=== PATIENT | male | born 1990 | race Hispanic/Latino ===

== ENCOUNTER 2019-02-04 00:25 | Emergency (ER) | payer BC, SELFPAY ==
[2019-02-04] MEDS ORDERED: LIDOCAINE VISCOUS 2% SOLN 15 ML UDC ONE (00:37)
[2019-02-04] MEDS ORDERED: MAGNE/ALUM HYDROXD 30 ML UCUP ONE (00:37)
--- NOTE | 2019-02-04 01:56 | ER ---
Nurse's Notes [facility] Name: Shane Adams Age: 28 yrs Sex: Male : 1990 Arrival Date: 02/04/2019 Time: 00:27 Bed 14 Private MD: Diagnosis: Gastro-esophageal reflux disease Presentation: 02/04 00:38 Presenting complaint: Patient states: sore throat, hoarseness, decreased appetite \T\ aa1 upper abd pain x 3 days. Reports hx of acid reflux and no relief with pepcid. Transition of care: patient was not received from another setting of care. Onset of symptoms was February 01, 2019. Risk Assessment: Do you want to hurt yourself or someone else? Patient reports no desire to harm self or others. Initial Sepsis Screen: Does the patient meet any 2 criteria? HR > 90 bpm. Does the patient have a suspected source of infection? Yes: Acute abdominal pain. Care prior to arrival: None. 00:38 Method Of Arrival: Ambulatory aa1 00:38 Acuity: RIANA 3 aa1 Triage Assessment: 00:43 General: Appears in no apparent distress. comfortable, Behavior is calm, cooperative, aa1 appropriate for age. Historical: - Allergies: 00:43 CONCERTA; aa1 - Home Meds: 00:43 None [Active]; aa1 - PMHx: 00:43 ADD/ADHD; Gastric Reflux; aa1 - PSHx: 00:43 None; aa1 - Immunization history:: Flu vaccine is not up to date. - Social history:: Smoking status: Patient/guardian denies using tobacco, Patient/guardian denies using alcohol. - Ebola Screening: : No symptoms or risks identified at this time. Screenin:40 Abuse screen: Denies threats or abuse. Denies injuries from another. Nutritional rr5 screening: No deficits noted. Tuberculosis screening: No symptoms or risk factors identified. Fall Risk None identified. Total Kenny Fall Scale indicates No Risk (0-24 pts). Assessment: 00:40 General: Appears in no apparent distress. uncomfortable, Behavior is calm, cooperative, rr5 appropriate for age. 00:40 Pain: Complains of pain in throat and epigastric area Pain does not radiate. Pain rr5 currently is 7 out of 10 on a pain scale. Quality of pain is described as aching, Pain began gradually, 2-3 days ago. Is intermittent. Neuro: Level of Consciousness is awake, alert, obeys commands, Oriented to person, place, time, situation, Appropriate for age. Cardiovascular: Capillary refill < 3 seconds Patient's skin is warm and dry. Respiratory: Airway is patent Respiratory effort is even, unlabored, Respiratory pattern is regular, symmetrical. GI: Abdomen is round Reports upper abdominal pain, vomiting, loss of appetite. : No signs and/or symptoms were reported regarding the genitourinary system. EENT: Throat is clear with gag reflex present, Reports pain in throat hoarseness. Derm: Skin is intact, is healthy with good turgor, Skin temperature is warm. Musculoskeletal: Circulation, motion, and sensation intact. Capillary refill < 3 seconds. 00:40 Respiratory: Breath sounds are clear bilaterally. rr5 02:20 Reassessment: Patient appears in no apparent distress at this time. Patient is alert, rr5 oriented x 3, equal unlabored respirations, skin warm/dry/pink. discharge instruction given and explained without complaints made. Patient states feeling better. Patient states symptoms have improved. Vital Signs: 00:43 BP 127 / 85; Pulse 109; Resp 18; Temp 98.3; Pulse Ox 99% on R/A; Weight 68.04 kg; aa1 Height 5 ft. 5 in. (165.10 cm); Pain 8/10; 02:10 BP 121 / 80; Pulse 90; Resp 17; Temp 98.5; Pulse Ox 99% ; Pain 4/10; rr5 00:43 Body Mass Index 24.96 (68.04 kg, 165.10 cm) aa1 ED Course: 00:27 Patient arrived in ED. cl3 00:27 Angeli Man FNP-C is PHCP. kb 00:27 Albert Yadav MD is Attending Physician. kb 00:34 Luis Antonio Caruso RN is Primary Nurse. rr5 00:41 Patient has correct armband on for positive identification. Bed in low position. Call rr5 light in reach. 00:41 No provider procedures requiring assistance completed. rr5 00:43 Triage completed. aa1 00:43 Arm band placed on right wrist. aa1 02:10 Patient did not have IV access during this emergency room visit. rr5 Administered Medications: 00:50 Drug: GI Cocktail without - (Maalox Suspension 30 ml, Lidocaine Liquid 2 % 15 rr5 ml) Route: PO; 02:10 Follow up: Response: No adverse reaction; Pain is decreased rr5 Outcome: 01:56 Discharge ordered by MD. almonte 02:10 Discharged to home ambulatory. rr5 02:10 Condition: stable 02:10 Discharge instructions given to patient, Instructed on discharge instructions, follow up and referral plans. Demonstrated understanding of instructions, follow-up care. 02:25 Patient left the ED. rr5 Signatures: Angeli Man, RETAIL MERCHANDISING MANAGER-C RETAIL MERCHANDISING MANAGER-Rosina Peacock RN RN aa1 Luis Antonio Caruso RN RN rr5 Lyssa Robledo cl3
--- NOTE | 2019-02-04 01:57 | EDPHYS ---
Physician Documentation [facility] Name: Shane Adams Age: 28 yrs Sex: Male : 1990 Arrival Date: 02/04/2019 Time: 00:27 Bed 14 Private MD: ED Physician Albert Yadav HPI: 02/04 02:17 This 28 yrs old Male presents to ER via Ambulatory with complaints of Sore kb Throat, Vomiting. 02:17 The patient presents with sore throat. The patient describes throat pain as hoarseness. kb Onset: The symptoms/episode began/occurred yesterday. Severity of symptoms: At their worst the symptoms were mild, in the emergency department the symptoms are unchanged. Modifying factors: The symptoms are alleviated by nothing, the symptoms are aggravated by nothing, Patient's oral intake status: good. Associated signs and symptoms: Pertinent positives: Sore throat epigastric pain . The patient has experienced similar episodes in the past. The patient has not recently seen a physician. Pt reports hoarse-feeling throat and epigastric pain. Reports epigastric pain resolved. States he has acid reflux and this happens when he eats a lot of spicy things. . Historical: - Allergies: 00:43 CONCERTA; aa1 - Home Meds: 00:43 None [Active]; aa1 - PMHx: 00:43 ADD/ADHD; Gastric Reflux; aa1 - PSHx: 00:43 None; aa1 - Immunization history:: Flu vaccine is not up to date. - Social history:: Smoking status: Patient/guardian denies using tobacco, Patient/guardian denies using alcohol. - Ebola Screening: : No symptoms or risks identified at this time. ROS: 02:17 Constitutional: Negative for fever, chills, and weight loss, Neck: Negative for injury, kb pain, and swelling, Cardiovascular: Negative for chest pain, palpitations, and edema, Respiratory: Negative for shortness of breath, cough, wheezing, and pleuritic chest pain, Back: Negative for injury and pain, MS/Extremity: Negative for injury and deformity, Skin: Negative for injury, rash, and discoloration, Neuro: Negative for headache, weakness, numbness, tingling, and seizure. 02:17 ENT: Positive for hoarseness. 02:17 Abdomen/GI: Positive for abdominal pain, of the epigastric area. Exam: 02:17 Constitutional: This is a well developed, well nourished patient who is awake, alert, kb and in no acute distress. Head/Face: Normocephalic, atraumatic. ENT: Nares patent. No nasal discharge, no septal abnormalities noted. Tympanic membranes are normal and external auditory canals are clear. Oropharynx with no redness, swelling, or masses, exudates, or evidence of obstruction, uvula midline. Mucous membranes moist. Neck: Trachea midline, no thyromegaly or masses palpated, and no cervical lymphadenopathy. Supple, full range of motion without nuchal rigidity, or vertebral point tenderness. No Meningismus. Chest/axilla: Normal chest wall appearance and motion. Nontender with no deformity. No lesions are appreciated. Cardiovascular: Regular rate and rhythm with a normal S1 and S2. No gallops, murmurs, or rubs. Normal PMI, no JVD. No pulse deficits. Respiratory: Lungs have equal breath sounds bilaterally, clear to auscultation and percussion. No rales, rhonchi or wheezes noted. No increased work of breathing, no retractions or nasal flaring. Abdomen/GI: Soft, non-tender, with normal bowel sounds. No distension or tympany. No guarding or rebound. No evidence of tenderness throughout. Skin: Warm, dry with normal turgor. Normal color with no rashes, no lesions, and no evidence of cellulitis. MS/ Extremity: Pulses equal, no cyanosis. Neurovascular intact. Full, normal range of motion. Neuro: Awake and alert, GCS 15, oriented to person, place, time, and situation. Cranial nerves II-XII grossly intact. Motor strength 5/5 in all extremities. Sensory grossly intact. Cerebellar exam normal. Normal gait. Vital Signs: 00:43 BP 127 / 85; Pulse 109; Resp 18; Temp 98.3; Pulse Ox 99% on R/A; Weight 68.04 kg; aa1 Height 5 ft. 5 in. (165.10 cm); Pain 8/10; 02:10 BP 121 / 80; Pulse 90; Resp 17; Temp 98.5; Pulse Ox 99% ; Pain 4/10; rr5 00:43 Body Mass Index 24.96 (68.04 kg, 165.10 cm) aa1 MDM: 00:28 Patient medically screened. kb 02:17 Data reviewed: vital signs, nurses notes. Data interpreted: Pulse oximetry: on room air kb is 99 %. Interpretation: normal. Counseling: I had a detailed discussion with the patient and/or guardian regarding: the historical points, exam findings, and any diagnostic results supporting the discharge/admit diagnosis, lab results, the need for outpatient follow up, a family practitioner, to return to the emergency department if symptoms worsen or persist or if there are any questions or concerns that arise at home. 02/04 01:20 Order name: Influenza Screen (A ; Complete Time: 01:55 EDMS 02/04 01:20 Order name: Group A Streptococcus Rapid Sc EDMS Administered Medications: 00:50 Drug: GI Cocktail without - (Maalox Suspension 30 ml, Lidocaine Liquid 2 % 15 rr5 ml) Route: PO; 02:10 Follow up: Response: No adverse reaction; Pain is decreased rr5 Disposition: 15:24 Co-signature as Attending Physician, Albert Yadav MD I agree with the assessment and tonie plan of care. Disposition: 02/04/19 01:56 Discharged to Home. Impression: Gastro-esophageal reflux disease. - Condition is Stable. - Discharge Instructions: Gastroesophageal Reflux Disease, Adult. - Medication Reconciliation Form, Thank You Letter, Antibiotic Education, Prescription Opioid Use form. - Follow up: Emergency Department; When: As needed; Reason: Worsening of condition. Follow up: Private Physician; When: 2 - 3 days; Reason: Recheck today's complaints, Continuance of care, Re-evaluation by your physician. Signatures: Dispatcher [employer] EDIA Angeli Man FNP-C FNP-Rosina Peacock, RN RN aa1 Albert Yadav MD MD cha Roque, Raymond RN RN rr5 Corrections: (The following items were deleted from the chart) 02:25 01:56 02/04/2019 01:56 Discharged to Home. Impression: Gastro-esophageal reflux rr5 disease. Condition is Stable. Forms are Medication Reconciliation Form, Thank You Letter, Antibiotic Education, Prescription Opioid Use. Follow up: Emergency Department; When: As needed; Reason: Worsening of condition. Follow up: Private Physician; When: 2 - 3 days; Reason: Recheck today's complaints, Continuance of care, Re-evaluation by your physician. kb
[2019-02-04 14:10] VITALS: BP 127/85; TEMP 98.3; O2SAT 99
== END 2019-02-04 02:25 | disposition home or self-care (01) ==
LOC: ER 00:25
DX: K21.9 Gastro-esophageal reflux disease without esophagitis (principal); Z88.8 Allergy status to other drugs, medicaments and biological substances
CPT/HCPCS: 87070; 87081; 87804; 99283

== ENCOUNTER 2022-12-04 19:20 | Emergency (ER) | payer SELFPAY ==
[2022-12-04 20:04] LABS: Absolute Lymphocytes (CBC) 2.3 K/uL (0.7-4.9); Hematocrit 44.3 % (39.6-49.0); Lymphocytes % 22.7 % (15.3-44.8); MCV 83.7 fL (80-100); MPV 8.9 fL (7.6-11.3); Platelets 181 thou/uL (152-406)
[2022-12-04] MEDS ORDERED: ONDANSETRON 4 MG/2 ML VIAL ONE (20:11)
[2022-12-04] MEDS ORDERED: PANTOPRAZOLE 40 MG INJ ONE (20:11)
[2022-12-04] MEDS ORDERED: NA CHLORIDE 0.9% 1,000 ML ONE (20:11)
[2022-12-04 20:20] LABS: Albumin 3.7 g/dL (3.4-5.0); Bilirubin Direct 0.1 mg/dL (0-0.2); Bilirubin Indirect, Calculated 0.5 mg/dL (0.2-0.8); Bilirubin Total 0.6 mg/dL (0.2-1.0); Magnesium 2.2 mg/dL (1.6-2.4); Potassium 3.4 mEq/L (3.5-5.1); Protein, Total 7.3 g/dL (6.4-8.2); Troponin High Sensitivity 5.7 pg/mL (<58.9)
[2022-12-04] MEDS ORDERED: MAGNES/ALUMIN/SIMET 30ML UCUP ONE (20:20)
--- NOTE | 2022-12-04 20:43 | RAD REPORT ---
EXAM DESCRIPTION: Darlene Single View12/04/2022 8:09 pm CLINICAL HISTORY: CHEST PAIN COMPARISON: No comparisons TECHNIQUE: Portable AP view of the chest. FINDINGS: Decreased inspiratory effort limiting evaluation. The lungs show bibasilar streaky opaciti es, may reflect atelectasis. No pneumothorax or effusion. The cardiomediastinal contours are unremar kable. IMPRESSION: Mild bibasilar streaky opacities favoring atelectasis. No other acute cardiopulmonary pr ocess.
--- NOTE | 2022-12-04 21:05 | RAD REPORT ---
EXAM DESCRIPTION: US - Abdomen Exam Limited - 12/04/2022 8:34 pm CLINICAL HISTORY: ruq pain COMPARISON: No comparisons TECHNIQUE: Sonographic grayscale and color flow images of the right upper abdominal quadrant were obtained. FINDINGS: The gallbladder is suboptimally distended limiting evaluation, but demonstrates no gallsto neil. No pericholecystic fluid or gallbladder wall thickening. The common bile duct is normal measurin g 3 mm. The visualized aspects of the liver demonstrates no findings of intrahepatic biliary dilatation. IMPRESSION: Unremarkable examination, although suboptimally distended gallbladder limits evaluation.
--- NOTE | 2022-12-04 21:15 | EDPHYS ---
Physician Documentation [facility] Name: Shane Adams Age: 32 yrs Sex: Male : 1990 Arrival Date: 12/04/2022 Time: 19:20 Bed 16 Private MD: ED Physician Perfecto Gates HPI: 12/04 21:17 This 32 yrs old Male presents to ER via Ambulatory with complaints of Chest rt Pain. 21:17 Patient presents to the ED with chest pain, nausea, vomiting. Patient states this pain rt is consistent with prior episodes of reflux. Is been going on for few days. He does report vomiting which is different. Denies other acute complaints at this time, symptoms are moderate in severity, no other aggravating elevating factors.. Historical: - Allergies: 19:30 CONCERTA; mb9 - Home Meds: 19:30 None [Active]; mb9 - PMHx: 19:30 ADD/ADHD; Gastric Reflux; mb9 - PSHx: 19:30 None; mb9 - Immunization history:: Adult Immunizations up to date. - Social history:: Smoking status: Patient denies any tobacco usage or history of. - Family history:: not pertinent. ROS: 21:17 Constitutional: Negative for fever, chills, and weight loss, Respiratory: Negative for rt shortness of breath, cough, wheezing, and pleuritic chest pain, MS/Extremity: Negative for injury and deformity, Skin: Negative for injury, rash, and discoloration, Neuro: Negative for headache, weakness, numbness, tingling, and seizure, Psych: Negative for depression, anxiety, suicide ideation, homicidal ideation, and hallucinations, 21:17 Cardiovascular: Positive for chest pain, Negative for edema, 21:17 Abdomen/GI: Positive for nausea, vomiting, Exam: 21:17 Constitutional: This is a well developed, well nourished patient who is awake, alert, rt and in no acute distress. Head/Face: Normocephalic, atraumatic. Chest/axilla: Normal chest wall appearance and motion. Nontender with no deformity. No lesions are appreciated. Cardiovascular: Regular rate and rhythm with a normal S1 and S2. No gallops, murmurs, or rubs. Normal PMI, no JVD. No pulse deficits. Respiratory: Lungs have equal breath sounds bilaterally, clear to auscultation and percussion. No rales, rhonchi or wheezes noted. No increased work of breathing, no retractions or nasal flaring. Abdomen/GI: Soft, non-tender, with normal bowel sounds. No distension or tympany. No guarding or rebound. No evidence of tenderness throughout. Skin: Warm, dry with normal turgor. Normal color with no rashes, no lesions, and no evidence of cellulitis. MS/ Extremity: Pulses equal, no cyanosis. Neurovascular intact. Full, normal range of motion. Neuro: Awake and alert, GCS 15, oriented to person, place, time, and situation. Cranial nerves II-XII grossly intact. Motor strength 5/5 in all extremities. Sensory grossly intact. Cerebellar exam normal. Normal gait. Psych: Awake, alert, with orientation to person, place and time. Behavior, mood, and affect are within normal limits. 21:17 ECG was reviewed by the Attending Physician. Vital Signs: 19:29 BP 144 / 91; Pulse 98; Resp 16; Temp 98; Pulse Ox 97% on R/A; Weight 81.65 kg; Height 5 mb9 ft. 5 in. ; Pain 7/10; 20:00 BP 115 / 74; Pulse 91; Resp 17; Pulse Ox 96% on R/A; me1 21:00 BP 116 / 73; Pulse 76; Resp 16; Pulse Ox 96% on R/A; me1 19:29 Body Mass Index 29.95 (81.65 kg, 165.1 cm) mb9 19:29 Pain Scale: Adult mb9 MDM: 19:42 Patient medically screened. rt 21:17 Differential diagnosis: Acute coronary syndrome, gastritis, acid reflux, gallstones, rt pancreatitis. HEART Score: History: Slightly Suspicious (0), ECG: Normal (0), Age: < or = 45 years (0), Risk Factors: No Risk Factors Known (0), Troponin: < or = 1 x Normal Limit (0), Total Score = 0. Data reviewed: vital signs, nurses notes, lab test result(s), EKG, radiologic studies. I considered the following discharge prescriptions or medication management in the emergency department Medications were administered in the Emergency Department. See MAR. Independent interpretation of the following test(s) in the Emergency Department X-Ray: My interpretation is No consolidation seen on interpretation of x-ray images. Test considered but Not performed: CT: Benign abdominal examination, CT scan not indicated. Counseling: I had a detailed discussion with the patient and/or guardian regarding the historical points, exam findings, and any diagnostic results supporting the discharge/admit diagnosis, lab results, radiology results, the need for outpatient follow up. Response to treatment: the patient's symptoms have markedly improved after treatment. 12/04 19:50 Order name: Basic Metabolic Panel; Complete Time: 20:22 rt 12/04 19:50 Order name: CBC with Diff; Complete Time: 20: rt 12/04 19:50 Order name: LFT's; Complete Time: 20: rt 12/04 19:50 Order name: Magnesium; Complete Time: : rt 12/04 19:50 Order name: Troponin HS; Complete Time: 20: rt 12/04 19:50 Order name: Lipase; Complete Time: 20: rt 12/04 19:50 Order name: XRAY Chest (1 view); Complete Time: 20:54 rt 12/04 19:50 Order name: US Abdomen Limited; Complete Time: 21:10 rt 12/04 19:50 Order name: EKG; Complete Time: 19:51 rt 12/04 19:50 Order name: Cardiac monitoring; Complete Time: :53 rt 12/04 19:50 Order name: EKG - Nurse/Tech; Complete Time: 19:53 rt 12/04 19:50 Order name: IV Saline Lock; Complete Time: 19:53 rt 12/04 19:50 Order name: Labs collected and sent; Complete Time: 19:53 rt 12/04 19:50 Order name: O2 Per Protocol; Complete Time: 19:53 rt 12/04 19:50 Order name: O2 Sat Monitoring; Complete Time: 19:53 rt EC:17 Rate is 97 beats/min. Rhythm is regular, Normal Sinus Rhythm with No ectopy. QRS [place] rt is Normal. AR interval is normal. QRS interval is normal. QT interval is normal. No Q waves. T waves are Normal. No ST changes noted. Interpreted by me. Administered Medications: 20:04 Drug: NS 0.9% IV 1000 ml IV at 1 bolus Per protocol; 1000 mL bolus Route: IV; Rate: 1 me1 bolus; Site: left antecubital; 20:04 Drug: Ondansetron IVP 4 mg IVP once; over 2 minutes Route: IVP; Site: left antecubital; me1 21:10 Follow up: Response: No adverse reaction me1 20:04 Drug: Pantoprazole IVP 40 mg IVP once Route: IVP; Site: left antecubital; me1 21:11 Follow up: Response: No adverse reaction me1 20:08 Drug: Alum-Mag Hydroxide-Simeth PO Suspension (200 mg-200 mg-20 mg/5 mL) 30 ml PO once me1 Route: PO; 21:10 Follow up: Response: No adverse reaction me1 Disposition Summary: 12/04/22 21:15 Discharge Ordered Notes: Location: Home rt Problem: an ongoing problem rt Symptoms: have improved rt Condition: Stable rt Diagnosis - Gastro-esophageal reflux disease without esophagitis rt Followup: rt - With: Amilcar Lopez MD - When: 7 - 10 days - Reason: Discharge Instructions: - Discharge Summary Sheet rt Forms: - Medication Reconciliation Form rt - Thank You Letter rt - Antibiotic Education rt - Prescription Opioid Use rt - Patient Portal Instructions rt - Leadership Thank You Letter rt Prescriptions: - ondansetron 4 mg Oral Tablet,disintegrating - take 1 tablet ORAL route every 6 hours; 18 tablet; Refills: 0, Product rt Selection Permitted - Protonix 40 mg Oral Tablet - take 1 tablet ORAL route once daily; 30 tablet; Refills: 0, Product Selection rt Permitted Signatures: Dispatcher [employer] Kacey Penn RN RN mb9 Perfecto Gates MD MD rt Kendal Glynn RN RN me1
--- NOTE | 2022-12-04 21:15 | ER ---
Nurse's Notes [facility] Name: Shane Adams Age: 32 yrs Sex: Male : 1990 Arrival Date: 12/04/2022 Time: 19:20 Bed 16 Private MD: Diagnosis: Gastro-esophageal reflux disease without esophagitis Presentation: 12/04 19:29 Chief complaint: Patient states: "I started having CP while sitting earlier. Now I'm mb9 N/V. It feels like it's burning and radiates to my neck". Coronavirus screen: Vaccine status: Patient reports receiving the 2nd dose of the covid vaccine. Ebola Screen: No symptoms or risks identified at this time. Initial Sepsis Screen: Does the patient meet any 2 criteria? No. Patient's initial sepsis screen is negative. Does the patient have a suspected source of infection? No. Patient's initial sepsis screen is negative. Risk Assessment: Do you want to hurt yourself or someone else? Patient reports no desire to harm self or others. Onset of symptoms was December 04, 2022. 19:29 Method Of Arrival: Ambulatory 9 19:29 Acuity: RIANA 3 mb9 Triage Assessment: 19:30 General: Appears in no apparent distress. Behavior is calm, cooperative. Pain: mb9 Complains of pain in chest Pain radiates to neck Pain at worst was 7 out of 10 on a pain scale. Quality of pain is described as burning. EENT: No signs and/or symptoms were reported regarding the EENT system. Neuro: Chapa Agitation-Sedation Scale (RASS): 0 - Alert and Calm Level of Consciousness is awake, alert, obeys commands, Oriented to person, place, time, situation, Appropriate for age. Cardiovascular: Reports chest pain, Patient's skin is warm and dry. Respiratory: Airway is patent Respiratory effort is even, unlabored, Respiratory pattern is regular, symmetrical. GI: Reports nausea, vomiting. Musculoskeletal: Range of motion: intact in all extremities. Historical: - Allergies: 19:30 CONCERTA; mb9 - Home Meds: 19:30 None [Active]; mb9 - PMHx: 19:30 ADD/ADHD; Gastric Reflux; mb9 - PSHx: 19:30 None; mb9 - Immunization history:: Adult Immunizations up to date. - Social history:: Smoking status: Patient denies any tobacco usage or history of. - Family history:: not pertinent. Screenin:19 [facility] ED Fall Risk Assessment (Adult) History of falling in the last 3 months, me1 including since admission No falls in past 3 months (0 pts) Confusion or Disorientation No (0 pts) Intoxicated or Sedated No (0 pts) Impaired Gait No (0 pts) Mobility Assist Device Used No (0 pt) Altered Elimination No (0 pt) Score/Fall Risk Level 0 - 2 = Low Risk. Abuse screen: Denies threats or abuse. Nutritional screening: No deficits noted. Tuberculosis screening: No symptoms or risk factors identified. Assessment: 21:19 General: Appears uncomfortable, well groomed, well developed, well nourished, Behavior me1 is calm, cooperative, appropriate for age, Reports chest pain that started while sitting earlier today. c/o n/v now. States pain feels like a burning/pressure that starts in chest and radiates to his neck. Pain: Complains of pain in chest Pain radiates to neck Pain currently is 7 out of 10 on a pain scale. Quality of pain is described as burning, pressure, Pain began gradually, 3 hours ago. Is continuous. Neuro: Level of Consciousness is awake, alert, obeys commands, Oriented to person, place, time, situation, Appropriate for age. Cardiovascular: Capillary refill < 3 seconds Patient's skin is warm and dry. Respiratory: Airway is patent Respiratory effort is even, unlabored, Respiratory pattern is regular, symmetrical. Vital Signs: 19:29 BP 144 / 91; Pulse 98; Resp 16; Temp 98; Pulse Ox 97% on R/A; Weight 81.65 kg; Height 5 mb9 ft. 5 in. ; Pain 7/10; 20:00 BP 115 / 74; Pulse 91; Resp 17; Pulse Ox 96% on R/A; me1 21:00 BP 116 / 73; Pulse 76; Resp 16; Pulse Ox 96% on R/A; me1 19:29 Body Mass Index 29.95 (81.65 kg, 165.1 cm) mb9 19:29 Pain Scale: Adult mb9 ED Course: 19:23 Patient arrived in ED. jj6 19:30 Triage completed. mb9 19:30 Arm band placed on. mb9 19:35 Kendal Glynn, RN is Primary Nurse. me1 19:40 Perfecto Gates MD is Attending Physician. rt 19:43 Inserted saline lock: 20 gauge in left antecubital area, using aseptic technique. me1 19:55 Basic Metabolic Panel Sent. me1 19:56 CBC with Diff Sent. me1 19:56 LFT's Sent. me1 19:56 Magnesium Sent. me1 19:56 Troponin HS Sent. me1 19:56 Lipase Sent. me1 20:10 XRAY Chest (1 view) In Process Unspecified. EDMS 20:36 US Abdomen Limited In Process Unspecified. EDMS 21:14 Amilcar Lopez MD is Referral Physician. rt 21:19 Patient has correct armband on for positive identification. Bed in low position. Call me1 light in reach. Side rails up X 1. Provided Education on: POC. Verbalized understanding. . Client placed on continuous cardiac and pulse oximetry monitoring. NIBP monitoring applied. deputy controller on. 21:19 No provider procedures requiring assistance completed. Patient maintains SpO2 me1 saturation greater than 95% on room air. 21:34 IV discontinued, intact, bleeding controlled, No redness/swelling at site. Pressure me1 dressing applied. Administered Medications: 20:04 Drug: NS 0.9% IV 1000 ml IV at 1 bolus Per protocol; 1000 mL bolus Route: IV; Rate: 1 me1 bolus; Site: left antecubital; 20:04 Drug: Ondansetron IVP 4 mg IVP once; over 2 minutes Route: IVP; Site: left antecubital; me1 21:10 Follow up: Response: No adverse reaction me1 20:04 Drug: Pantoprazole IVP 40 mg IVP once Route: IVP; Site: left antecubital; me1 21:11 Follow up: Response: No adverse reaction me1 20:08 Drug: Alum-Mag Hydroxide-Simeth PO Suspension (200 mg-200 mg-20 mg/5 mL) 30 ml PO once me1 Route: PO; 21:10 Follow up: Response: No adverse reaction me1 Medication: 21:19 VIS not applicable for this client. me1 Outcome: 21:15 Discharge ordered by . rt 21:34 Discharged to home ambulatory, me1 21:34 Condition: stable 21:34 Discharge instructions given to patient, Instructed on discharge instructions, follow up and referral plans. medication usage, Demonstrated understanding of instructions, follow-up care, medications, Prescriptions given X 2, 21:34 Patient left the ED. me1 Signatures: Dispatcher [employer] EDMajo Hussein Mary Beth, RN RN mb9 Perfecto Gates MD MD rt Kendal Glynn, DANISHA RN me1 Corrections: (The following items were deleted from the chart) 21:33 20:00 BP 116 / 73; Pulse 76bpm; Resp 16bpm; Pulse Ox 96% RA; me1 me1
[2022-12-04 21:39] VITALS: TEMP 98
[2022-12-04 21:40] VITALS: O2SAT 96
[2022-12-04 21:42] VITALS: BP 116/73
--- NOTE | 2022-12-06 13:52 | EKG ---
Test Date: 2022-12-04 Test Time: 19:35:50 Beam Worker: MB MEASUREMENT RESULTS: Intervals: Rate: 97 [place]: 144 QRSD: 86 QT: 340 QTc: 431 [place]: P: 49 [place]: 144 QRS: 61 T: 32 INTERPRETIVE STATEMENTS: Normal sinus rhythm Normal ECG Compared to ECG 07/26/2000 11:06:00 No significant changes Electronically Signed On 12-06-22 13:50:27 CDT by Natanael Gutierrez
== END 2022-12-04 21:34 | disposition home or self-care (01) ==
LOC: ER 19:20
DX: K21.9 Gastro-esophageal reflux disease without esophagitis (principal)
CPT/HCPCS: 36415; 71045; 76705; 80048; 80076; 83690; 83735; 84484; 85025; 93005; 96374; 96375; 99285; C9113; J2405; J7030

== ENCOUNTER 2023-01-09 23:07 | Emergency (ER) | payer SELFPAY ==
--- NOTE | 2023-01-09 23:21 | EDPHYS ---
Physician Documentation [facility] Name: Shane Adams Age: 32 yrs Sex: Male : 1990 Arrival Date: 01/09/2023 Time: 23:07 Bed 13 Private MD: ED Physician Reji Us HPI: 01/10 00:06 This 32 yrs old Male presents to ER via Ambulatory with complaints of Abscess. kb 00:06 Patient is a 32-year-old male with a history of acid reflux and ADD who presents for kb abscess to right nipple that began yesterday. Denies fever.. Historical: - Allergies: 01/09 23:26 CONCERTA; pf1 - PMHx: 23:26 ADD/ADHD; Gastric Reflux; pf1 - PSHx: 23:26 None; pf1 - Immunization history:: Adult Immunizations not up to date, Last tetanus immunization: > 10 years ago Flu vaccine is not up to date. - Social history:: Smoking status: Patient denies any tobacco usage or history of. Patient/guardian denies using alcohol, street drugs. ROS: 01/10 00:05 Constitutional: Negative for fever, chills, and weight loss, kb Skin: Positive for abscess, of the right nipple, All other systems are negative, Exam: 00:05 Constitutional: This is a well developed, well nourished patient who is awake, alert, kb and in no acute distress. Head/Face: Normocephalic, atraumatic. ENT: Moist Mucous membranes Cardiovascular: Regular rate Respiratory: Respirations even and unlabored. No increased work of breathing. Talking in full sentences MS/ Extremity: Pulses equal, no cyanosis. Neurovascular intact. Full, normal range of motion. Neuro: Awake and alert, GCS 15, oriented to person, place, time, and situation. Moves all extremities. Normal gait. 00:05 Skin: abscess, that is small, of the right nipple, with induration, Vital Signs: 01/09 23:24 BP 128 / 102; Pulse 83; Resp 16; Temp 98.4; Pulse Ox 100% on R/A; Weight 80.29 kg; pf1 Height 5 ft. 5 in. ; Pain 7/10; 23:43 BP 119 / 88; Pulse 82; Resp 16; Pulse Ox 100% on R/A; pf1 23:24 Body Mass Index 29.45 (80.29 kg, 165.1 cm) pf1 23:24 Pain Scale: Adult pf1 MDM: 23:12 Patient medically screened. 01/10 00:06 Data reviewed: vital signs, nurses notes. kb 00:06 Differential diagnosis: abscess, allergic reaction, cellulitis, insect bite. kb Counseling: I had a detailed discussion with the patient and/or guardian regarding the historical points, exam findings, and any diagnostic results supporting the discharge/admit diagnosis, the need for outpatient follow up, a family practitioner, to return to the emergency department if symptoms worsen or persist or if there are any questions or concerns that arise at home. ED course: No drainable abscess appreciated. Administered Medications: 01/09 23:30 Drug: Trimethoprim-Sulfamethoxazole PO (160 mg-800 mg (DS) 1 tablet PO once Route: PO; pf1 23:43 Follow up: Response: No adverse reaction pf1 Disposition: 01/10 06:54 Co-signature as Attending Physician, Reji Us MD I agree with the assessment sp4 and plan of care. I reviewed the patient's care provided by the Advanced Practice Provider and agree with the diagnosis and treatment plan. Disposition Summary: 01/09/23 23:21 Discharge Ordered Notes: Location: Home kb Condition: Stable kb Diagnosis - Cutaneous abscess of chest wall - right breast kb Followup: kb - With: Emergency Department - When: As needed - Reason: Worsening of condition Followup: kb - With: Private Physician - When: 2 - 3 days - Reason: Recheck today's complaints, Continuance of care, Re-evaluation by your physician Discharge Instructions: - Discharge Summary Sheet kb - Skin Abscess, [id number] kb Forms: - Medication Reconciliation Form kb - Thank You Letter kb - Antibiotic Education kb - Prescription Opioid Use kb - Patient Portal Instructions kb - Leadership Thank You Letter kb Prescriptions: - Bactrim DS 800-160 mg Oral Tablet - take 1 tablet ORAL route every 12 hours for 10 days; 20 tablet; Refills: 0, kb Product Selection Permitted Signatures: Angeli Man FNP-C FNP-Ckb Finley, Pamala, RN RN pf1 Reji Us MD MD sp4
[2023-01-09] MEDS ORDERED: SMZ./TMP. 800/160 MG TABLET ONE (23:45)
--- NOTE | 2023-01-09 23:45 | ER ---
Nurse's Notes [facility] [place] Name: Shane Adams Age: 32 yrs Sex: Male : 1990 Arrival Date: 01/09/2023 Time: 23:07 Bed 13 Private MD: Diagnosis: Cutaneous abscess of chest wall-right breast Presentation: 01/09 23:24 Chief complaint: Patient states: redness and swelling to right nipple with white pf1 drainage and pain of 7,onset yesterday. Coronavirus screen: Vaccine status: Patient reports receiving the 2nd dose of the covid vaccine. 3 doses Client denies travel out of the [place] in the last 14 days. At this time, the client does not indicate any symptoms associated with coronavirus-19. Ebola Screen: Patient negative for fever greater than or equal to 101.5 degrees Fahrenheit, and additional compatible Ebola Virus Disease symptoms. Initial Sepsis Screen: Does the patient meet any 2 criteria? No. Patient's initial sepsis screen is negative. Does the patient have a suspected source of infection? No. Patient's initial sepsis screen is negative. Risk Assessment: Do you want to hurt yourself or someone else? Patient reports no desire to harm self or others. 23:24 Method Of Arrival: Ambulatory pf1 23:24 Acuity: RIANA 5 pf1 Historical: - Allergies: 23:26 CONCERTA; pf1 - PMHx: 23:26 ADD/ADHD; Gastric Reflux; pf1 - PSHx: 23:26 None; pf1 - Immunization history:: Adult Immunizations not up to date, Last tetanus immunization: > 10 years ago Flu vaccine is not up to date. - Social history:: Smoking status: Patient denies any tobacco usage or history of. Patient/guardian denies using alcohol, street drugs. Screenin:29 [facility] ED Fall Risk Assessment (Adult) History of falling in the last 3 months, pf1 including since admission No falls in past 3 months (0 pts) Confusion or Disorientation No (0 pts) Intoxicated or Sedated No (0 pts) Impaired Gait No (0 pts) Mobility Assist Device Used No (0 pt) Altered Elimination No (0 pt) Score/Fall Risk Level 0 - 2 = Low Risk Oriented to surroundings, Maintained a safe environment, Educated pt \T\ family on fall prevention, incl call for assistance when getting out of bed, Assessed \T\ reinforced patient's understanding of fall precautions, Provided non-skid footwear, Hourly rounding (assess needs \T\ fall precautionary measures) done, Used ambulatory aids as needed (educated on \T\ assisted with), Used gait belt as appropriate. Abuse screen: Denies threats or abuse. Nutritional screening: No deficits noted. Tuberculosis screening: No symptoms or risk factors identified. Assessment: 23:27 General: Appears in no apparent distress. comfortable, well groomed, well developed, pf1 Behavior is calm, cooperative, appropriate for age, quiet. Pain: Complains of pain in right nipple Pain currently is 7 out of 10 on a pain scale. Neuro: No deficits noted. Level of Consciousness is awake, alert, obeys commands, Oriented to person, place, time, situation. Cardiovascular: No deficits noted. Capillary refill < 3 seconds Patient's skin is warm and dry. Respiratory: No deficits noted. Airway is patent Respiratory effort is even, unlabored, Respiratory pattern is regular, symmetrical. GI: No deficits noted. No signs and/or symptoms were reported involving the gastrointestinal system. : No deficits noted. No signs and/or symptoms were reported regarding the genitourinary system. Derm: Reports pain that is 7 out of 10 on a pain scale. with redness, swelling and white discharge to right nipple. Vital Signs: 23:24 BP 128 / 102; Pulse 83; Resp 16; Temp 98.4; Pulse Ox 100% on R/A; Weight 80.29 kg; pf1 Height 5 ft. 5 in. ; Pain 7/10; 23:43 BP 119 / 88; Pulse 82; Resp 16; Pulse Ox 100% on R/A; pf1 23:24 Body Mass Index 29.45 (80.29 kg, 165.1 cm) pf1 23:24 Pain Scale: Adult pf1 ED Course: 23:10 Patient arrived in ED. jj6 23:12 [facility]C [facility] kb 23:12 Reji Us MD is Attending Physician. kb 23:26 Triage completed. pf1 23:29 Patient has correct armband on for positive identification. Bed in low position. Call pf1 light in reach. 23:29 Arm band placed on right wrist. pf1 23:29 No provider procedures requiring assistance completed. Patient did not have IV access pf1 during this emergency room visit. 23:44 Provided Education on: prescription . pf1 Administered Medications: 23:30 Drug: Trimethoprim-Sulfamethoxazole PO (160 mg-800 mg (DS) 1 tablet PO once Route: PO; pf1 23:43 Follow up: Response: No adverse reaction pf1 Medication: 23:44 VIS not applicable for this client. pf1 Outcome: 23:21 Discharge ordered by . suzy 23:44 Discharged to home ambulatory, pf1 23:44 Condition: stable 23:44 Discharge instructions given to patient, Instructed on discharge instructions, follow up and referral plans. Demonstrated understanding of instructions, follow-up care, medications, Prescriptions given X 1, 23:45 Patient left the ED. pf1 Signatures: Angeli Man, DIANETIC COUNSELOR-C DIANETIC COUNSELOR-Majo Lynne jj6 Eula Burnett, RN RN pf1
[2023-01-09 23:52] VITALS: TEMP 98.4; O2SAT 100
[2023-01-09 23:54] VITALS: BP 119/88
== END 2023-01-09 23:45 | disposition home or self-care (01) ==
LOC: ER 23:07
DX: N61.1 Abscess of the breast and nipple (principal)
CPT/HCPCS: 99283

== ENCOUNTER → 2023-02-28 | Emergency (ER) | payer SELFPAY ==
[~2023-02-28] MED LIST: ASPIRIN 81 MG CHEWABLE TABLET ONE; LORazepam 2 MG/ML VIAL ONE; NA CHLORIDE 0.9% 2,000 ML ONE; ONDANSETRON 4 MG/2 ML VIAL ONE; POTASSIUM 25 MEQ EFFERV TAB ONE
[2023-02-28 10:33] LABS: Absolute Lymphocytes (CBC) 1.3 K/uL (0.7-4.9); Hematocrit 47.5 % (39.6-49.0); Lymphocytes % 11.9 % (15.3-44.8); MCV 85.6 fL (80-100); MPV 9.2 fL (7.6-11.3); Platelets 202 thou/uL (152-406); RBC Red Blood Cell Count 5.54 M/uL (4.33-5.43)
--- NOTE | 2023-02-28 10:36 | RAD REPORT ---
EXAM DESCRIPTION: Darlene Single View02/28/2023 10:27 am CLINICAL HISTORY: Chest pain COMPARISON: November 2022 FINDINGS: The lungs appear clear of acute infiltrate. The heart is normal size IMPRESSION: No acute abnormalities displayed
[2023-02-28 10:39] LABS: Protime INR 1.06
[2023-02-28 10:59] LABS: ALT/SGPT 35 U/L (16-61); AST/SGOT 23 U/L (15-37); Albumin 3.8 g/dL (3.4-5.0); Alkaline Phosphatase 100 U/L (45-117); BUN Blood Urea Nitrogen 15 mg/dL (7-18); Bicarbonate 25 mEq/L (21-32); Bilirubin Total 0.3 mg/dL (0.2-1.0); Glomerular Filtration Rate 103 ml/min (=/>90); Glucose Level 164 mg/dL (74-106); Lipase 32 U/L (13-75); Magnesium 2.2 mg/dL (1.6-2.4); NT PRO-BNP 15 pg/mL (<125); Potassium 3.4 mEq/L (3.5-5.1); Protein, Total 7.2 g/dL (6.4-8.2); Sodium Level 141 mEq/L (136-145); Troponin High Sensitivity 4.6 pg/mL (<58.9)
[2023-02-28 11:02] LABS: Bilirubin Direct < 0.1 mg/dL (0-0.2); Bilirubin Indirect, Calculated ND mg/dL (0.2-0.8)
[2023-02-28 12:09] LABS: Specific Gravity > 1.030 (1.005-1.030); Urine Bilirubin NEGATIVE (Negative); Urine Blood Negative (Negative); Urine Clarity Clear (Clear); Urine Color Light-Yellow (Yellow); Urine Glucose 2+ (Negative); Urine Protein NEGATIVE (Negative); Urine Urobilinogen Normal (Normal)
[2023-02-28 12:11] LABS: Barbiturates NEGATIVE (NEGATIVE); Benzodiazepines NEGATIVE (NEGATIVE); Cocaine NEGATIVE (NEGATIVE); METHAMPHETAM NEGATIVE (NEGATIVE); Methadone NEGATIVE (NEGATIVE); Opiates NEGATIVE (NEGATIVE); Phencyclidine NEGATIVE (NEGATIVE); THC Cannibis NEGATIVE (NEGATIVE)
--- NOTE | 2023-02-28 12:35 | ER ---
Nurse's Notes [facility] Name: Shane Adams Age: 33 yrs Sex: Male : 1990 Arrival Date: 02/28/2023 Time: 09:57 Bed 7 Private MD: Diagnosis: Chest pain, unspecified;Anxiety disorder, unspecified;Tachycardia, unspecified;Hypokalemia;Gastro-esophageal reflux disease with esophagitis Presentation: 02/28 10:11 Chief complaint: Patient states: "1 hr ago, I started having high HR around 120s, chest mb9 pain, N/V, and both my arms feel sore/numb.". Coronavirus screen: Vaccine status: Patient reports receiving the 2nd dose of the covid vaccine. Ebola Screen: No symptoms or risks identified at this time. Initial Sepsis Screen: Does the patient meet any 2 criteria? HR > 90 bpm. Does the patient have a suspected source of infection? No. Patient's initial sepsis screen is negative. Risk Assessment: Do you want to hurt yourself or someone else? Patient reports no desire to harm self or others. Onset of symptoms was February 28, 2023. 10:11 Method Of Arrival: Ambulatory mb9 10:11 Acuity: RIANA 3 mb9 Triage Assessment: 10:13 General: Appears uncomfortable, Behavior is anxious. Pain: Complains of pain in chest mb9 Pain does not radiate. Quality of pain is described as pressure. EENT: No signs and/or symptoms were reported regarding the EENT system. Neuro: Chapa Agitation-Sedation Scale (RASS): 0 - Alert and Calm Level of Consciousness is awake, alert, obeys commands, Oriented to person, place, time, situation, Appropriate for age Reports numbness in right arm and left arm. Cardiovascular: Reports chest pain, Heart tones S1 S2 present Patient's skin is warm and dry. Respiratory: Airway is patent Respiratory effort is even, unlabored, Respiratory pattern is regular, symmetrical, Breath sounds are clear bilaterally. GI: Abdomen is round non-distended, Bowel sounds present X 4 quads. Abd is soft and non tender X 4 quads. Reports nausea, vomiting. : No signs and/or symptoms were reported regarding the genitourinary system. Derm: Skin is pink, warm \\T\\ dry. Musculoskeletal: Range of motion: intact in all extremities. Historical: - Allergies: 10:07 CONCERTA; mb9 - Home Meds: 10:13 None [Active]; mb9 - PMHx: 10:07 ADD/ADHD; Gastric Reflux; mb9 - PSHx: 10:13 None; mb9 - Immunization history:: Adult Immunizations up to date. - Social history:: Smoking status: Patient denies any tobacco usage or history of. - Family history:: not pertinent. Screenin:06 [facility] ED Fall Risk Assessment (Adult) History of falling in the last 3 months, mb9 including since admission No falls in past 3 months (0 pts) Confusion or Disorientation No (0 pts) Intoxicated or Sedated No (0 pts) Impaired Gait No (0 pts) Mobility Assist Device Used No (0 pt) Altered Elimination No (0 pt) Score/Fall Risk Level 0 - 2 = Low Risk Oriented to surroundings, Maintained a safe environment, Educated pt \\T\\ family on fall prevention, incl call for assistance when getting out of bed. Abuse screen: Denies threats or abuse. Nutritional screening: No deficits noted. Tuberculosis screening: No symptoms or risk factors identified. Assessment: 10:14 Reassessment: see triage assessment. mb9 11:14 Reassessment: No changes from previously documented assessment. Patient and/or family mb9 updated on plan of care and expected duration. Pain level reassessed. Patient is alert, oriented x 3, equal unlabored respirations, skin warm/dry/pink. 12:34 Reassessment: No changes from previously documented assessment. Patient and/or family mb9 updated on plan of care and expected duration. Pain level reassessed. Patient is alert, oriented x 3, equal unlabored respirations, skin warm/dry/pink. Vital Signs: 10:11 BP 144 / 94; Pulse 120; Resp 18; Temp 98.8(O); Pulse Ox 100% ; Weight 88.45 kg; Height mb9 5 ft. 5 in. ; 10:37 BP 139 / 84; Pulse 102; Resp 16; Pulse Ox 100% on R/A; mb9 11:10 BP 112 / 72; Pulse 77; Resp 18; Pulse Ox 98% on R/A; ld1 12:33 BP 129 / 88; Pulse 95; Resp 18; Pulse Ox 99% on R/A; mb9 12:38 BP 126 / 80; Pulse 71; Resp 18; Pulse Ox 98% on R/A; ld1 10:11 Body Mass Index 32.45 (88.45 kg, 165.1 cm) mb9 ED Course: 10:00 Patient arrived in ED. ts1 10:06 Kacey Santiago, DANISHA is Primary Nurse. mb9 10:06 Albert Yadav MD is Attending Physician. tonie 10:06 Arm band placed on. mb9 10:07 Placed in gown. Bed in low position. Call light in reach. Side rails up X 1. Client mb9 placed on continuous cardiac and pulse oximetry monitoring. NIBP monitoring applied. secured entrance monitor on. 10:13 Triage completed. mb9 10:14 No provider procedures requiring assistance completed. EKG done, by ED staff, reviewed mb9 by Albert Yadav MD. 10:24 Inserted saline lock: 20 gauge in right forearm, using aseptic technique. mb9 10:29 XRAY Chest (1 view) In Process Unspecified. EDMS 10:30 ETOH Level Sent. ld1 10:30 Lipase Sent. ld1 10:30 Basic Metabolic Panel Sent. ld1 10:30 CBC with Diff Sent. ld1 10:30 LFT's Sent. ld1 10:30 Magnesium Sent. ld1 10:30 NT PRO-BNP Sent. ld1 10:30 PT-INR Sent. ld1 10:30 Troponin HS Sent. ld1 11:59 Troponin HS: repeat at noon Sent. mb9 12:35 Natanael Gutierrez MD is Referral Physician. tonie 12:45 IV discontinued, intact, bleeding controlled, No redness/swelling at site. ld1 Administered Medications: 10:20 Drug: Ondansetron IVP 4 mg IVP once; over 2 minutes Route: IVP; Site: right forearm; mb9 11:15 Follow up: Response: No adverse reaction mb9 10:23 Drug: Ativan IVP 1 mg IVP once Route: IVP; Site: right forearm; mb9 11:15 Follow up: Response: No adverse reaction mb9 10:24 Drug: NS 0.9% IV 1000 ml IV at 1 bolus Per protocol; 1000 mL bolus Route: IV; Rate: 1 mb9 bolus; Site: right forearm; 10:24 Drug: NS 0.9% IV 1000 ml IV at 1 bolus Per protocol; 1000 mL bolus Route: IV; Rate: 1 mb9 bolus; Site: right forearm; 10:24 Drug: Aspirin PO Chewable Tablet 81 mg PO once Route: PO; mb9 11:15 Follow up: Response: No adverse reaction mb9 11:44 Drug: Potassium PO Effervescent Tablet 50 mEq PO once; dissolve in 4 ounces of water or mb9 juice Route: PO; 11:59 Follow up: Response: No adverse reaction 9 11:49 Not Given (Patient Refused): ns 0.9% 1000 ml IV at 1 bolus Per protocol; 1000 mL bolus ld1 Medication: 10:07 VIS not applicable for this client. mb9 Outcome: 12:35 Discharge ordered by . tonie 12:45 Discharged to home ambulatory, ld1 12:45 Condition: stable 12:45 Discharge instructions given to patient, Instructed on discharge instructions, follow up and referral plans. medication usage, Demonstrated understanding of instructions, follow-up care, medications, Prescriptions given X 2, 12:46 Patient left the ED. ld1 Signatures: Dispatcher [employer] EDMS Albert Yadav MD MD cha Sims, Lauren, RN RN ld1 Kacey Santiago RN RN mb9 Cherelle Mcghee, RAMÍREZ PAS ts1 Corrections: (The following items were deleted from the chart) 10:35 10:24 [id number] drawn and sent. 9 [facility]
--- NOTE | 2023-02-28 12:35 | EDPHYS ---
Physician Documentation [facility] Name: Shane Adams Age: 33 yrs Sex: Male : 1990 Arrival Date: 02/28/2023 Time: 09:57 Bed 7 Private MD: ED Physician Albert Yadav HPI: 02/28 10:23 This 33 yrs old Male presents to ER via Ambulatory with complaints of Numbness tonie Of Arm, Vomiting. 10:23 The patient or guardian complains of pain, that is acute. The complaints affect the tonie anterior aspect of right shoulder and posterior aspect of right shoulder, anterior aspect of left shoulder and posterior aspect of left shoulder. Context: resulted from unknown cause. Onset: The symptoms/episode began/occurred this morning, today. Treatment prior to arrival includes: no previous treatment. Modifying factors: The symptoms are alleviated by nothing. the symptoms are aggravated by nothing. Associated signs and symptoms: Pertinent positives: nausea, vomiting. The patient has not experienced similar symptoms in the past. Historical: - Allergies: 10:07 CONCERTA; mb9 - Home Meds: 10:13 None [Active]; mb9 - PMHx: 10:07 ADD/ADHD; Gastric Reflux; mb9 - PSHx: 10:13 None; mb9 - Immunization history:: Adult Immunizations up to date. - Social history:: Smoking status: Patient denies any tobacco usage or history of. - Family history:: not pertinent. ROS: 10:23 Constitutional: Negative for fever, chills, and weight loss, Eyes: Negative for injury, tonie pain, redness, and discharge, ENT: Negative for injury, pain, and discharge, Neck: Negative for injury, pain, and swelling, Respiratory: Negative for shortness of breath, cough, wheezing, and pleuritic chest pain, Abdomen/GI: Negative for abdominal pain, nausea, vomiting, diarrhea, and constipation, Back: Negative for injury and pain, : Negative for injury, bleeding, discharge, and swelling, MS/Extremity: Negative for injury and deformity, Skin: Negative for injury, rash, and discoloration, Neuro: Negative for headache, weakness, numbness, tingling, and seizure, Psych: Negative for depression, anxiety, suicide ideation, homicidal ideation, and hallucinations, Allergy/Immunology: Negative for hives, rash, and allergies, Endocrine: Negative for neck swelling, polydipsia, polyuria, polyphagia, and marked weight changes, 10:23 Cardiovascular: Positive for chest pain, Exam: 10:23 Constitutional: This is a well developed, well nourished patient who is awake, alert, tonie and in no acute distress. Head/Face: Normocephalic, atraumatic. Eyes: Pupils equal round and reactive to light, extra-ocular motions intact. Lids and lashes normal. Conjunctiva and sclera are non-icteric and not injected. Cornea within normal limits. Periorbital areas with no swelling, redness, or edema. ENT: Nares patent. No nasal discharge, no septal abnormalities noted. Tympanic membranes are normal and external auditory canals are clear. Oropharynx with no redness, swelling, or masses, exudates, or evidence of obstruction, uvula midline. Mucous membranes moist. Neck: Trachea midline, no thyromegaly or masses palpated, and no cervical lymphadenopathy. Supple, full range of motion without nuchal rigidity, or vertebral point tenderness. No Meningismus. Chest/axilla: Normal chest wall appearance and motion. Nontender with no deformity. No lesions are appreciated. Respiratory: Lungs have equal breath sounds bilaterally, clear to auscultation and percussion. No rales, rhonchi or wheezes noted. No increased work of breathing, no retractions or nasal flaring. Abdomen/GI: Soft, non-tender, with normal bowel sounds. No distension or tympany. No guarding or rebound. No evidence of tenderness throughout. Back: No spinal tenderness. No costovertebral tenderness. Full range of motion. Male : Normal genitalia with no discharge or lesions. Skin: Warm, dry with normal turgor. Normal color with no rashes, no lesions, and no evidence of cellulitis. MS/ Extremity: Pulses equal, no cyanosis. Neurovascular intact. Full, normal range of motion. Neuro: Awake and alert, GCS 15, oriented to person, place, time, and situation. Cranial nerves II-XII grossly intact. Motor strength 5/5 in all extremities. Sensory grossly intact. Cerebellar exam normal. Normal gait. Psych: Awake, alert, with orientation to person, place and time. Behavior, mood, and affect are within normal limits. 10:23 Cardiovascular: Rate: tachycardic, actual rate is 120 bpm, Rhythm: regular, Pulses: no pulse deficits are appreciated, Heart sounds: normal, Edema: is not appreciated, JVD: is not appreciated, 10:23 ECG was reviewed by the Attending Physician. 10:23 Musculoskeletal/extremity: DVT Exam: No signs of deep vein thrombosis. no pain, no swelling, no tenderness, negative Homans' sign noted on exam, no appreciated bluish discoloration, no erythema, no increased warmth, 12:04 ECG was reviewed by the Attending Physician. [facility] Vital Signs: 10:11 BP 144 / 94; Pulse 120; Resp 18; Temp 98.8(O); Pulse Ox 100% ; Weight 88.45 kg; Height mb9 5 ft. 5 in. ; 10:37 BP 139 / 84; Pulse 102; Resp 16; Pulse Ox 100% on R/A; mb9 11:10 BP 112 / 72; Pulse 77; Resp 18; Pulse Ox 98% on R/A; ld1 12:33 BP 129 / 88; Pulse 95; Resp 18; Pulse Ox 99% on R/A; mb9 12:38 BP 126 / 80; Pulse 71; Resp 18; Pulse Ox 98% on R/A; ld1 10:11 Body Mass Index 32.45 (88.45 kg, 165.1 cm) mb9 MDM: 10:06 Patient medically screened. [facility] 10:27 Differential diagnosis: contusion. Data reviewed: vital signs, nurses notes, lab test [facility] result(s), EKG, radiologic studies, plain films. Consideration of Admission/Observation Escalation of care including admission/observation considered. I considered the following discharge prescriptions or medication management in the emergency department Medications were administered in the Emergency Department. See MAR. Independent interpretation of the following test(s) in the Emergency Department EKG: See my EKG interpretation above. Test considered but Not performed: MRI: NO MRI CHEST. Care significantly affected by the following chronic conditions: GERD, ADHD. Counseling: I had a detailed discussion with the patient and/or guardian regarding the historical points, exam findings, and any diagnostic results supporting the discharge/admit diagnosis, the presence of at least one elevated blood pressure reading (>120/80) during this emergency department visit, lab results, radiology results. 02/28 10:15 Order name: Basic Metabolic Panel; Complete Time: 11:32 tonie 02/28 10:15 Order name: CBC with Diff; Complete Time: 10:49 tonie 02/28 10:15 Order name: LFT's; Complete Time: 11:32 02/28 10:15 Order name: Magnesium; Complete Time: 11:32 02/28 10:15 Order name: NT PRO-BNP; Complete Time: 11:32 02/28 10:15 Order name: PT-INR; Complete Time: 10:49 02/28 10:15 Order name: Troponin HS; Complete Time: 11:32 02/28 10:15 Order name: Lipase; Complete Time: 11:32 02/28 10:15 Order name: ETOH Level; Complete Time: 10:49 02/28 10:15 Order name: UDS; Complete Time: 12:14 tonie 02/28 10:15 Order name: Urinalysis w/ reflexes; Complete Time: 12:14 02/28 10:35 Order name: D-Dimer; Complete Time: 10:49 EDMS 02/28 11:33 Order name: Troponin HS: repeat at noon 02/28 10:15 Order name: XRAY Chest (1 view); Complete Time: 10:49 02/28 10:15 Order name: EKG; Complete Time: 10:15 02/28 11:33 Order name: EKG; Complete Time: 11:34 02/28 10:15 Order name: Cardiac monitoring; Complete Time: 10:15 02/28 10:15 Order name: EKG - Nurse/Tech; Complete Time: 10:15 02/28 10:15 Order name: IV Saline Lock; Complete Time: 10:16 02/28 10:15 Order name: Labs collected and sent; Complete Time: 10:16 02/28 10:15 Order name: O2 Per Protocol; Complete Time: 10:16 02/28 10:15 Order name: O2 Sat Monitoring; Complete Time: 10:16 02/28 11:33 Order name: EKG - Nurse/Tech; Complete Time: 11:59 02/28 11:35 Order name: Misc. Order: please get ua/uds; Complete Time: 11:[address] [facility] EC:23 Rate is 106 beats/min. Rhythm is regular. QRS [place] is Normal. [place] interval is normal. tonie QRS interval is normal. QT interval is normal. No Q waves. T waves are Normal. No ST changes noted. Clinical impression: Sinus tachycardia and No evidence of ischemia. Interpreted by me. Reviewed by me. 12:04 Rate is 87 beats/min. Rhythm is regular. QRS [place] is Normal. [place] interval is normal. QRS tonie interval is normal. QT interval is normal. No Q waves. T waves are Normal. No ST changes noted. Clinical impression: NSR w/ Non-specific ST/T Changes and No evidence of ischemia. Interpreted by me. Reviewed by me. Administered Medications: 10:20 Drug: Ondansetron IVP 4 mg IVP once; over 2 minutes Route: IVP; Site: right forearm; mb9 11:15 Follow up: Response: No adverse reaction mb9 10:23 Drug: Ativan IVP 1 mg IVP once Route: IVP; Site: right forearm; mb9 11:15 Follow up: Response: No adverse reaction mb9 10:24 Drug: NS 0.9% IV 1000 ml IV at 1 bolus Per protocol; 1000 mL bolus Route: IV; Rate: 1 mb9 bolus; Site: right forearm; 10:24 Drug: NS 0.9% IV 1000 ml IV at 1 bolus Per protocol; 1000 mL bolus Route: IV; Rate: 1 mb9 bolus; Site: right forearm; 10:24 Drug: Aspirin PO Chewable Tablet 81 mg PO once Route: PO; mb9 11:15 Follow up: Response: No adverse reaction mb9 11:44 Drug: Potassium PO Effervescent Tablet 50 mEq PO once; dissolve in 4 ounces of water or mb9 juice Route: PO; 11:59 Follow up: Response: No adverse reaction mb9 11:49 Not Given (Patient Refused): ns 0.9% 1000 ml IV at 1 bolus Per protocol; 1000 mL bolus ld1 Disposition Summary: 02/28/23 12:35 Discharge Ordered Notes: Location: Home tonie Problem: new tonie Symptoms: have improved tonie Condition: Stable tonie Diagnosis - Chest pain, unspecified tonie - Anxiety disorder, unspecified tonie - Tachycardia, unspecified tonie - Hypokalemia tonie - Gastro-esophageal reflux disease with esophagitis tonie Followup: tonie - With: Private Physician - When: 2 - 3 days - Reason: Recheck today's complaints, Continuance of care, Re-evaluation by your physician Followup: tonie - With: Natanael Gutierrez MD - When: 2 - 3 days - Reason: Recheck today's complaints, Re-evaluation by your physician Discharge Instructions: - Discharge Summary Sheet tonie - Panic Attack tonie - Nonspecific Chest Pain, Adult tonie - Food Choices for Gastroesophageal Reflux Disease, Adult tonie - Potassium Content of Foods tonie - Esophagitis tonie - Gastroesophageal Reflux Disease, Adult tonie - Nonspecific Chest Pain, Adult, Ddas-np-Etie tonie - Panic Attack, [id number] tonie - Aspirin and Your Heart tonie - Hypokalemia tonie - Sinus Tachycardia tonie - Managing Anxiety, Adult [facility] Forms: - Medication Reconciliation Form [facility] - Thank You Letter tonie - Antibiotic Education tonie - Prescription Opioid Use tonie - Patient Portal Instructions tonie - Leadership Thank You Letter tonie - Work release form eb Prescriptions: - Protonix 40 mg Oral Tablet - take 1 tablet ORAL route once daily; 30 tablet; Refills: 0, Product Selection [facility] Permitted - Xanax 0.5 mg Oral Tablet - take 1 tablet ORAL route every 8 hours As needed; 20 tablet; Refills: 0, [facility] Product Selection Permitted Signatures: Dispatcher [employer] EDAlbert Nick MD MD cha Breneman, Mary Beth RN RN mb9 Jessica Mena RN ld1 Corrections: (The following items were deleted from the chart) 10:35 10:23 D-DIMER+[email or web address] ordered. EDMO EDMS
[2023-02-28 13:27] VITALS: TEMP 98.8
[2023-02-28 13:59] VITALS: BP 126/80; O2SAT 98
--- NOTE | 2023-03-01 16:59 | EKG ---
Test Date: 2023-02-28 Test Time: 11:54:22 Mail Sorter And Delivery: MB MEASUREMENT RESULTS: Intervals: Rate: 87 GA: 138 QRSD: 82 QT: 338 QTc: 406 [place]: P: 60 GA: 138 QRS: 49 T: 38 INTERPRETIVE STATEMENTS: Normal sinus rhythm with sinus arrhythmia Normal ECG Compared to ECG 02/28/2023 10:15:57 Sinus tachycardia no longer present Electronically Signed On 03-01-23 16:56:10 TIN WHIZ MACHINE OPERATOR by Natanael Gutierrez
--- NOTE | 2023-03-01 17:00 | EKG ---
Test Date: 2023-02-28 Test Time: 10:15:57 Fruit Bar Maker: MB MEASUREMENT RESULTS: Intervals: Rate: 106 AR: 130 QRSD: 84 QT: 320 QTc: 425 [place]: P: 46 AR: 130 QRS: 2 T: 30 INTERPRETIVE STATEMENTS: Sinus tachycardia Otherwise normal ECG Compared to ECG 12/04/2022 19:35:50 Sinus rhythm no longer present Electronically Signed On 03-01-23 16:56:17 COMMUNITY ASSOCIATION MANAGER by Natanael Gutierrez
== END ==
LOC: ER 09:57
DX: K21.00 Gastro-esophageal reflux disease with esophagitis, without bleeding (principal); E87.6 Hypokalemia; F41.9 Anxiety disorder, unspecified; R00.0 Tachycardia, unspecified
CPT/HCPCS: 36415; 71045; 80048; 80076; 80307; 81003; 82077; 83690; 83735; 83880; 84484; 85025; 85379; 85610; 93005; 96374; 96375; 99285; J2405; J7030

== ENCOUNTER 2023-07-10 17:29 | Emergency (ER) | payer SELFPAY ==
--- NOTE | 2023-07-10 18:43 | RAD REPORT ---
EXAM DESCRIPTION: RAD - Foot Left 3 View - 07/10/2023 6:35 pm CLINICAL HISTORY: PAIN COMPARISON: No comparisons FINDINGS/IMPRESSION: Age-indeterminate fracture at the fifth proximal phalanx at the distal aspect w ith intra-articular extension to the proximal interphalangeal joint and approximately 2 millimeters o f medial displacement. The fracture may be chronic as it does appear well corticated.
--- NOTE | 2023-07-10 19:35 | ER ---
Nurse's Notes [facility] Name: Shane Adams Age: 33 yrs Sex: Male : 1990 Arrival Date: 07/10/2023 Time: 17:29 Bed IW1 Private MD: Diagnosis: Displaced fracture of proximal phalanx of left lesser toe(s), initial encounter for closed fracture Presentation: 07/09 17:56 Chief complaint: Patient states: "I hurt my ankle about a month ago and I've been aa5 having pain on and off since then but today it's been hard to walk on it". 17:56 Coronavirus screen: At this time, the client does not indicate any symptoms associated aa5 with coronavirus-19. Ebola Screen: Patient denies travel to an Ebola-affected area in the 21 days before illness onset. Initial Sepsis Screen: Does the patient meet any 2 criteria? No. Patient's initial sepsis screen is negative. Does the patient have a suspected source of infection? No. Patient's initial sepsis screen is negative. Risk Assessment: Do you want to hurt yourself or someone else? Patient reports no desire to harm self or others. Onset of symptoms was June 2023. 17:56 Method Of Arrival: Ambulatory aa5 17:56 Acuity: RIANA 4 aa5 Historical: - Allergies: 17:56 CONCERTA; aa5 - PMHx: 17:56 ADD/ADHD; Gastric Reflux; aa5 - Immunization history:: Adult Immunizations unknown. - Infectious Disease History:: Denies. - Social history:: Smoking status: Patient denies any tobacco usage or history of. Screenin:47 [facility] ED Fall Risk Assessment (Adult) History of falling in the last 3 months, lg3 including since admission No falls in past 3 months (0 pts) Confusion or Disorientation No (0 pts) Intoxicated or Sedated No (0 pts) Impaired Gait No (0 pts) Mobility Assist Device Used No (0 pt) Altered Elimination No (0 pt) Score/Fall Risk Level 0 - 2 = Low Risk Oriented to surroundings, Maintained a safe environment, Educated pt \\T\\ family on fall prevention, incl call for assistance when getting out of bed, Assessed \\T\\ reinforced patient's understanding of fall precautions. Abuse screen: Denies threats or abuse. Denies injuries from another. Nutritional screening: No deficits noted. Tuberculosis screening: No symptoms or risk factors identified. Assessment: 19:47 General: Appears in no apparent distress. comfortable, Behavior is calm, cooperative. lg3 Pain: Complains of pain in lateral side of left foot and left fifth toe Pain does not radiate. Neuro: No deficits noted. [place] Agitation-Sedation Scale (RASS): 0 - Alert and Calm Level of Consciousness is awake, alert, obeys commands, Oriented to person, place, time, situation. Cardiovascular: No deficits noted. Denies chest pain, shortness of breath, Capillary refill < 3 seconds Clubbing of nail beds is absent JVD is absent Patient's skin is warm and dry. Respiratory: No deficits noted. Airway is patent Trachea midline Respiratory effort is even, unlabored, Respiratory pattern is regular, symmetrical. GI: No deficits noted. No signs and/or symptoms were reported involving the gastrointestinal system. : No deficits noted. No signs and/or symptoms were reported regarding the genitourinary system. EENT: No deficits noted. No signs and/or symptoms were reported regarding the EENT system. Derm: No deficits noted. Skin is intact, is healthy with good turgor, Skin is dry, Skin is normal, Skin temperature is warm. Musculoskeletal: Circulation, motion, and sensation intact. Range of motion: intact in all extremities, Reports pain in lateral side of left foot and left fifth toe. Vital Signs: 17:56 BP 138 / 87; Pulse 98; Resp 16 S; Temp 97.8(TE); Pulse Ox 98% on R/A; aa5 19:47 BP 131 / 88; Pulse 91; Resp 17 S; Temp 97.4(O); Pulse Ox 99% on R/A; lg3 ED Course: 17:30 Patient arrived in ED. mg5 17:34 [facility]C [facility] kb 17:34 Albert Yadav MD is Attending Physician. kb 17:56 Arm band placed on. aa5 17:58 Triage completed. aa5 18:36 Foot Left 3 View XRAY In Process Unspecified. EDMS 19:47 Patient has correct armband on for positive identification. lg3 19:47 No provider procedures requiring assistance completed. Patient did not have IV access lg3 during this emergency room visit. Administered Medications: No medications were administered Medication: 19:47 VIS not applicable for this client. lg3 Outcome: 19:35 Discharge ordered by MD. almonte 19:47 Discharged to home ambulatory, lg3 19:47 Condition: stable 19:47 Discharge instructions given to patient, Instructed on discharge instructions, follow up and referral plans. Demonstrated understanding of instructions, follow-up care, 19:49 Patient left the ED. lg3 Signatures: Dispatcher [employer] EDIA Angeli Man, SUSTAINABILITY MANAGER-C SUSTAINABILITY MANAGER-Teresa Reyes, RN RN aa5 Stella Bravo RN RN lg3 Tatianna Toledo mg5
--- NOTE | 2023-07-10 19:35 | EDPHYS ---
Physician Documentation [facility] Name: Shane Adams Age: 33 yrs Sex: Male : 1990 Arrival Date: 07/10/2023 Time: 17:29 Bed IW1 Private MD: ED Physician Albert Yadav HPI: 07/09 21:51 This 33 yrs old Male presents to ER via Ambulatory with complaints of Ankle kb Injury. 21:51 Pt is a 33 year old male who presents for left foot pain that started over a month ago kb after kicking furniture with little toe. States he has had intermittent pain to left foot since then. . Historical: - Allergies: 17:56 CONCERTA; aa5 - PMHx: 17:56 ADD/ADHD; Gastric Reflux; aa5 - Immunization history:: Adult Immunizations unknown. - Infectious Disease History:: Denies. - Social history:: Smoking status: Patient denies any tobacco usage or history of. ROS: 21:50 Constitutional: As per HPI kb Exam: 21:50 Constitutional: This is a well developed, well nourished patient who is awake, alert, kb and in no acute distress. Head/Face: Normocephalic, atraumatic. ENT: Moist Mucous membranes Cardiovascular: Regular rate Respiratory: Respirations even and unlabored. No increased work of breathing. Talking in full sentences Skin: Warm, dry with normal turgor. Normal color. Neuro: Awake and alert, GCS 15, oriented to person, place, time, and situation. Moves all extremities. Normal gait. 21:50 Musculoskeletal/extremity: Extremities: grossly normal except: noted in the lateral side of left foot: pain, ROM: intact in all extremities, Circulation is intact in all extremities. Sensation intact. Weight bearing: able to fully bear weight, Vital Signs: 17:56 BP 138 / 87; Pulse 98; Resp 16 S; Temp 97.8(TE); Pulse Ox 98% on R/A; aa5 19:47 BP 131 / 88; Pulse 91; Resp 17 S; Temp 97.4(O); Pulse Ox 99% on R/A; lg3 MDM: 17:35 Patient medically screened. kb 21:51 Differential diagnosis: fracture, sprain. Data reviewed: vital signs, nurses notes. kb Counseling: I had a detailed discussion with the patient and/or guardian regarding the historical points, exam findings, and any diagnostic results supporting the discharge/admit diagnosis, radiology results, the need for outpatient follow up, a orthopedic surgeon, to return to the emergency department if symptoms worsen or persist or if there are any questions or concerns that arise at home. 07/09 18:01 Order name: Foot Left 3 View XRAY; Complete Time: 18:59 kb Administered Medications: No medications were administered Disposition Summary: 07/10/23 19:35 Discharge Ordered Notes: Location: Home kb Condition: Stable kb Diagnosis - Displaced fracture of proximal phalanx of left lesser toe(s), initial encounter for kb closed fracture Followup: kb - With: Emergency Department - When: As needed - Reason: Worsening of condition Followup: kb - With: Private Physician - When: 2 - 3 days - Reason: Recheck today's complaints, Continuance of care, Re-evaluation by your physician Discharge Instructions: - Discharge Summary Sheet kb - Toe Fracture, [id number] kb - Foot Pain kb Forms: - Medication Reconciliation Form kb - Antibiotic Education kb - Prescription Opioid Use kb - Patient Portal Instructions kb - Leadership Thank You Letter kb Signatures: Dispatcher [employer] Angeli Hickey, PATIENT SERVICES ASSISTANT-C PATIENT SERVICES ASSISTANT-Teresa Reyes, RN RN aa5
== END 2023-07-10 19:49 | disposition home or self-care (01) ==
LOC: ER 17:29
DX: S92.512A Displaced fracture of proximal phalanx of left lesser toe(s), initial encounter for closed fracture (principal)
CPT/HCPCS: 99283

== ENCOUNTER 2024-10-13 08:28 | Emergency (ER) | payer OTHER, SELFPAY ==
--- NOTE | 2024-10-13 08:44 | ER ---
Nurse's Notes [facility] Name: Shane Adams Age: 34 yrs Sex: Male : 1990 Arrival Date: 10/13/2024 Time: 08:28 Bed IW1 Private MD: Diagnosis: Rash and other nonspecific skin eruption;Allergic contact dermatitis due to other chemical products Presentation: 10/13 08:36 Chief complaint: Patient states: itchy rash on his arms for a few weeks , comes and iw goes. Coronavirus screen: At this time, the client does not indicate any symptoms associated with coronavirus-19. Ebola Screen: No symptoms or risks identified at this time. Initial Sepsis Screen: Does the patient meet any 2 criteria? No. Patient's initial sepsis screen is negative. Does the patient have a suspected source of infection? No. Patient's initial sepsis screen is negative. Risk Assessment: Do you want to hurt yourself or someone else? Patient reports no desire to harm self or others. Onset of symptoms was September 24, 2024. 08:36 Method Of Arrival: Ambulatory iw 08:36 Acuity: RIANA 4 iw Historical: - Allergies: 08:37 CONCERTA; iw - PMHx: 08:37 Gastric Reflux; ADD/ADHD; iw - Immunization history:: Adult Immunizations. - Infectious Disease History:: Denies. - Social history:: Smoking status: Patient denies any tobacco usage or history of. - Family history:: not pertinent. - Hospitalizations: : No recent hospitalization is reported. Vital Signs: 08:36 BP 129 / 90; Pulse 87; Resp 16; Pulse Ox 100% on R/A; Weight 70.31 kg; Height 5 ft. 5 iw in. ; 08:36 Body Mass Index 25.79 (70.31 kg, 165.1 cm) iw ED Course: 08:35 Patient arrived in ED. iw 08:35 Vinod Rae MD is Attending Physician. rn 08:37 Triage completed. iw 08:37 Arm band placed on. iw 09:04 Sylwia Burger RN is Primary Nurse. iw Administered Medications: No medications were administered Outcome: 08:44 Discharge ordered by . rn 09:04 Patient left the ED. iw Signatures: Sylwia Buregr RN RN iw Vinod Rae MD MD rn
--- NOTE | 2024-10-13 08:44 | EDPHYS ---
Physician Documentation [facility] Name: Shane Adams Age: 34 yrs Sex: Male : 1990 Arrival Date: 10/13/2024 Time: 08:28 Bed IW1 Private MD: ED Physician Vinod Rae HPI: 10/13 08:41 This 34 yrs old Male presents to ER via Ambulatory with complaints of Rash. rn 08:41 Onset: The symptoms/episode began/occurred 4 week(s) ago. Patient reports rash, rn itching, to arms and torso that began about 1 month ago. 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 No fever or chills. Does not feel ill. Wears gloves and has not noticed rash on hands. No difficulty breathing.. Historical: - Allergies: 08:37 CONCERTA; iw - PMHx: 08:37 Gastric Reflux; ADD/ADHD; iw - Immunization history:: Adult Immunizations. - Infectious Disease History:: Denies. - Social history:: Smoking status: Patient denies any tobacco usage or history of. - Family history:: not pertinent. - Hospitalizations: : No recent hospitalization is reported. ROS: 08:41 Constitutional: Negative for fever, chills, and weight loss, Cardiovascular: Negative rn for chest pain, palpitations, and edema, Respiratory: Negative for shortness of breath, cough, wheezing, and pleuritic chest pain, Skin: Positive for itchy rash Exam: 08:41 Constitutional: This is a well developed, well nourished patient who is awake, alert, rn no acute distress, appears anxious Skin: A few areas of erythematous papular rash on arms and torso. No petechiae. No bulla. No evidence of abscess or induration. Vital Signs: 08:36 BP 129 / 90; Pulse 87; Resp 16; Pulse Ox 100% on R/A; Weight 70.31 kg; Height 5 ft. 5 iw in. ; 08:36 Body Mass Index 25.79 (70.31 kg, 165.1 cm) iw MDM: 08:35 Medical Screening Exam initiated rn 08:41 Differential diagnosis: Contact dermatitis, allergic dermatitis. Data reviewed: vital rn signs, nurses notes, and as a result, I will discharge patient. Counseling: I had a detailed discussion with the patient and/or guardian regarding the historical points, exam findings, and any diagnostic results supporting the discharge/admit diagnosis, the need for outpatient follow up, to return to the emergency department if symptoms worsen or persist or if there are any questions or concerns that arise at home. Special discussion: I discussed with the patient/guardian in detail that at this point there is no indication for admission to the hospital. It is understood, however, that if the symptoms persist or worsen the patient needs to return immediately for re-evaluation. Based on the history and exam findings, there is no indication for further emergent testing or inpatient evaluation. I discussed with the patient/guardian the need to see the center maker hand for further evaluation of the symptoms. I discussed with the patient/guardian the need to see the primary care provider for further evaluation of the symptoms. Administered Medications: No medications were administered Disposition Summary: 10/13/24 08:44 Discharge Ordered Notes: Location: Home rn Problem: an ongoing problem rn Symptoms: are unchanged rn Condition: Stable rn Diagnosis - Rash and other nonspecific skin eruption rn - Allergic contact dermatitis due to other chemical products rn Followup: rn - With: Private Physician - When: As needed - Reason: Recheck today's complaints, Re-evaluation by your physician Discharge Instructions: - Discharge Summary Sheet rn - Rash, Adult rn - Contact Dermatitis, [id number] rn Forms: - Medication Reconciliation Form rn - 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
[2024-10-13 09:08] VITALS: BP 129/90; O2SAT 100
== END 2024-10-13 09:04 | disposition home or self-care (01) ==
LOC: ER 08:28
DX: L23.5 Allergic contact dermatitis due to other chemical products (principal)
CPT/HCPCS: 99281